=== PATIENT | male | born 1945 | race Caucasian/White ===

== ENCOUNTER → 2023-06-23 | Outpatient (CLI) | payer MEDICARE, OTHER, SELFPAY ==
--- NOTE | 2023-06-23 15:31 | ECHOD_ITS ---
Reason For Study: Afib Procedure This was a 2D Doppler, Color Flow transthoracic echocardiogram. Exam performed in department. Left Ventricle Normal LV size. Left ventricular systolic function is normal. The estimated ejection fraction is 55 %. Stage 1 diastolic dysfunction. No regional wall motion abnormalities noted. Right Ventricle Normal RV size. Normal systolic function. Atria Normal left atrium. Normal right atrium. Mitral Valve Normal mitral valve. Mild (1+) eccentric mitral valve insufficiency. Tricuspid Valve Normal tricuspid valve. Mild (1+) tricuspid valve insufficiency. Pulmonary artery systolic pressure is 28 mmHg. Aortic Valve Trisinus/trileaflet aortic valve. Pulmonic Valve Normal pulmonic valve. Great Vessels Normal aortic root. The pulmonary artery is normal size. Normal inferior vena cava. Pericardium/Pleural No pericardial effusion. Medication 22 gauge I.V. with prn adaptor inserted into right arm. Performed a rapid injection of agitated mix of 9 cc saline and 1cc air to assess for atrial septal defect. MMode/2D Measurements & Calculations LVIDd: 4.1 cm IVSd: 1.2 cm LA dimension: 3.3 cm LVIDs: 2.9 cm LVPWd: 0.93 cm RVDd: 3.6 cm FS: 28.5 % LAV(MOD-bp): 34.9 ml LVAd ap4: 30.0 cm2 SV(MOD-sp4): 48.8 ml LAV(MOD-bp) Indexed: 18.6 ml/m2 LVLd ap4: 8.4 cm LAV(MOD-sp2): 40.4 ml EDV(MOD-sp4): 88.5 ml LAV(MOD-sp4): 28.6 ml EDV(sp4-el): 90.9 ml LVAs ap4: 18.4 cm2 LVLs ap4: 7.1 cm ESV(MOD-sp4): 39.7 ml ESV(sp4-el): 40.1 ml EF(MOD-sp4): 55.1 % EF(sp4-el): 55.9 % SV(sp4-el): 50.8 ml LA A4 area: 13.7 cm2 RA A4 area: 12.0 cm2 TAPSE: 1.5 cm Time Measurements MV dec time: 0.25 sec Doppler Measurements & Calculations MV E max damian: 63.4 cm/sec Lat Peak E' Damian: 11.1 cm/sec Med Peak E' Damian: 7.6 cm/sec MV A max damian: 69.4 cm/sec E/E' lat: 5.7 E/E' med: 8.3 MV E/A: 0.91 MV V2 max: 94.9 cm/sec MV P1/2t max damian: 79.1 cm/sec Ao V2 max: 107.1 cm/sec MV max P.6 mmHg MV P1/2t: 96.2 msec Ao max P.6 mmHg MV V2 mean: 53.2 cm/sec MV mean P.3 mmHg MV dec slope: 240.8 cm/sec2 MV V2 VTI: 30.0 cm MVA(P1/2t): 2.3 cm2 LV V1 max: 91.0 cm/sec PA V2 max: 98.7 cm/sec TR max damian: 249.3 cm/sec LV V1 max P.3 mmHg TR max P.9 mmHg LV V1 mean P.9 mmHg LV V1 mean: 64.7 cm/sec LV V1 VTI: 19.7 cm ECHO/Echo Complete Interpretation Summary Normal LV size. Left ventricular systolic function is normal. The estimated ejection fraction is 55 %. Stage 1 diastolic dysfunction. Mild (1+) tricuspid valve insufficiency. Ordering Physician: Thee Moreno Performed By: Chrsi Romero RCS
== END | disposition home or self-care (01) ==
LOC: CVS 15:30
PROVIDERS: PCP Nurse Practitioner; Referring Provider Internal Medicine Cardiovascular Disease; Visit Provider Internal Medicine Cardiovascular Disease
DX: I48.20 Chronic atrial fibrillation, unspecified (principal)
CPT/HCPCS: 93306

== ENCOUNTER 2023-06-27 07:43 | Observation (INO) | payer MEDICARE, OTHER, SELFPAY ==
--- NOTE | 2023-06-20 16:01 | EKG12_ITS ---
Test Reason : PRE-OP Blood Pressure : / mmHG Vent. Rate : 103 BPM Atrial Rate : 088 BPM P-R Int : 000 ms QRS Dur : 076 ms QT Int : 322 ms P-R-T Axes : 000 008 050 degrees QTc Int : 421 ms Atrial fibrillation Abnormal ECG Confirmed by SHAQUILLE ORTIZ MD ([id number]), greeting card editor AYE TAVERA ([id number]) on 06/22/2023 2:12:39 PM Referred By: RUSTY Confirmed By:SHAQUILLE ORTIZ MD
[2023-06-20 16:27] LABS: Absolute Lymphocyte Count 2.42 X10^3/uL (0.83-4.51); Absolute Neutrophil Count 3.3 X10^3/uL (2.0-7.7); Basophil# 0.07 X10^3/uL; Eosinophil# 0.13 X10^3/uL; Eosinophils% 1.9 % (0-5); Hematocrit 44.3 % (40-54); Hemoglobin 14.1 g/dL (13.0-16.5); Lymphocyte # 2.42 X10^3/ul (0.83-4.51); Lymphocyte % 36.1 % (19-41); Mean Corp Hgb Conc 31.8 g/dL (32-36); Mean Corpuscular Hgb 29.2 pg (27.0-32.0); Mean Corpuscular Volume 91.7 fL (80-94); Mean Platelet Vol. 8.9 fl (6.2-12.0); Monocyte# 0.82 X10^3/uL; Monocyte% 12.2 % (0-10); NRBC Flagged by Analyzer 0 % (0-5); Neutrophil # 3.25 X10^3/uL (2.7-7.7); Neutrophil % 48.5 % (47-70); Platelet Count 259 K/mm3 (150-450); RBC Distribution Width CV 12.5 % (11.6-14.6); RBC Distribution Width SD 41.6 fl (35.1-43.9); Red Blood Count 4.83 M/mm3 (4.6-6.2); White Blood Count 6.7 K/mm3 (4.4-11.0)
[2023-06-20 16:47] LABS: Anion Gap 4 (5-15); BUN 17 mg/dL (7-18); BUN/Creat Ratio 18.8 RATIO (10-20); Chloride 104 mmol/L (98-107); Creatinine, Serum 0.91 mg/dL (0.70-1.30); EST Glomerular Filtration Rate 86 mL/min (>60); Est Glom Filt Rate - Afr Amer 105 mL/min (>60); Glucose 108 mg/dL (74-106); Sodium Level 138 mmol/L (136-145)
[2023-06-20 17:25] LABS: Magnesium 2.5 mg/dL (1.6-2.6)
[2023-06-20 17:44] LABS: HIV - WCH Non-Reactive (Nonreactive); Hepatitis B Surface Antibody Non-Reactive; Hepatitis C Antibody Non-Reactive (Nonreactive)
[2023-06-22 05:07] LABS: Hepatitis A AB, Total Negative (Negative)
[2023-06-27] VITALS (15 sets, daily range): BP systolic 101–151; BP diastolic 57–77; PULSE 62–75; RESP 12–18; TEMP 36.4–36.9; O2SAT 92–99; BMI 23.3; BMI 23.7
[2023-06-27] MEDS: Lactated Ringers 1,000 ML 15 ML IV ×2 (06:19→09:25)
[2023-06-27] MEDS: Acetaminophen 500 MG Tablet 1000 MG PO ×3 (06:19→21:17)
[2023-06-27] MEDS: Magnesium 1 GM over 15 mins IV (06:19)
[2023-06-27 06:40] LABS: Bedside Glucose 90 mg/dL (74-106)
[2023-06-27] MEDS: Cefazolin 2 GM in 0.9% Normal Saline (100mL Bag) 100 ML IV (08:14)
--- NOTE | 2023-06-27 08:45 | RAD_ITS ---
STUDY: X-RAY - LUMBAR SPINE REASON FOR EXAM: Male, 77 years old. Documentation images for localization. TECHNIQUE: A single lateral view(s) of the lumbar spine were obtained. COMPARISON: None FINDINGS: Single lateral view shows surgical instrument projected over the L3-4 interspace. RAD/Spine 1 View Any Level IMPRESSION: Single lateral localization view. Electronically Signed: Sae Beckman MD at 9:17 EDT ,
[2023-06-27] MEDS: THROMBIN (RECOMBINANT) 20,000 UNIT VIAL 20000 UNIT TOPICAL (09:23)
--- NOTE | 2023-06-27 10:23 | PCM.OPRPT ---
Report of Operation Description of Surgical Findings:: Preoperative diagnosis: Far lateral herniation L3-4 on the left Postoperative diagnosis: Same Procedure: Far lateral laminectomy with superior facetectomy L3-4 on the left CPT code 19405 Surgeon: Dr. Perez Nurse Epidemiologist: Dr. Cramer and Lillie SEWELL Anesthesia: General endotracheal by [facility] EBL: Less than 20 cc Drains: None Complications: None Procedure: Patient was taken to the OR where he was placed under general endotracheal anesthesia. A Tai catheter was inserted. Neuro monitoring placed her leads on the patient. We then placed him in the prone position on the Anand frame. Care was taken to protect his bony prominences his genitalia the brachial plexus on both sides the ulnar nerves of both elbows the cervical spine and facial features. The back was prepped and draped standard fashion. I then made a longitudinal incision centered centered over L3-4. Subcutaneous tissues were opened down to the lumbar fascia with cautery. I then elevated the paravertebral muscles off the lamina of L3. An intraoperative x-ray was taken with a marker in place to confirm that we were at the right level. I then exposed the pars and the entire lamina of L3 on the left side. Using an osteotome I started performing the superior facetectomy and had to cut just into the bottom of the pars. From there I used 45 degree Kerrison rongeurs to further remove the superior facet and the lateral lamina. I then encountered the ligamentum flavum I used curettes to release it all around and then began slow removal with Kerrison rongeurs. This was the most tedious part of the surgery. Once it was removed entirely I could see observe the left L3 nerve and its ganglion. The herniated disc was up against it in the axilla where they usually are. Note that it was not a free fragment per se. Some of the annulus went with it but using the pen field that was slowly able to dissected and free fragments were then removed out of the axilla. This completely freed the nerve above and below. Bleeding was controlled with bone wax and bipolar cautery and Gelfoam. At the end of the case we had excellent hemostasis. We placed a amnionic membrane directly on the nerve to prevent any adhesions in the future. I put Gelfoam over the top of that. There was no need for a drain as her blood loss was minimal. Then close lumbar fascia using [id number] suture with #1 Vicryl followed by closure of subcutaneous tissues with 2-0 Vicryl in interrupted fashion and finally the skin was approximated using skin clips. Sterile dressings were then applied the patient was then recovered in the OR moved to his hospital bed and taken to recovery in satisfactory condition. This the end of operative summary on Edy Parks. This is Dr. Perez dictating.
--- NOTE | 2023-06-27 11:27 | DISC_PTH ---
PATIENT: GLENN JONES LOC: MS3 U#:[id number] AGE/SX: 77/M ROOM: CA316 RE06/27/[address]: Dr. West Perez DO : 1945 BED: 1 DIS: 06/28/2023 SPEC #: [id number] RECD: 06/27/23 13:13 STATUS: VERNON QUYEN #: [id number] RADHA: 06/27/23 11:[address]: West Perez DEPT: SURGICAL PATHOLOGY RECD BY: Ashu Pacheco ENTERED: 06/27/23 13:13 SP TYPE: DISC OTHR DR: Raina Bhardwaj, ARABELLA Tissues: Intervertebral disc, NOS Procedures: Surgery Specimen Level III HEADER OPERATION: ERAS, left far lateral laminectomy L3-L4 PRE-OP DIAGNOSIS: Herniated nucleus pulposus L3-L4 left TISSUE SUBMITTED: Lumbar disc MICROSCOPIC DIAGNOSIS Intervertebral disc, L3-L4, discectomy: Fragments of intervertebral disc with degenerative change. AM:juan 06/28/2023 MICROSCOPIC DESCRIPTION Slides are reviewed. GROSS DESCRIPTION Received in fixative is one container labeled with the patient's name and designated lumbar disc. The specimen consists of multiple irregular fragments of manjarrez, indurated tissue that in aggregate measure 1.5 x 0.7 x 0.2 cm. The specimen is totally submitted in one cassette. / SJ:juan 06/27/2023 TC:5 CPT: 65074
--- NOTE | 2023-06-27 14:09 | PCM.PN.HOSP ---
Reason for Visit Reason for Visit: L3-L4 HNP with left-sided radiculopathy at L4 Subjective Subjective Patient is a 77-year-old male who was suffering from low back pain and left-sided L4 radiculopathy on MRI. He is a lifetime non-smoker but had neurological changes therefore was scheduled for a L3-L4 laminectomy and facetectomy which was performed today electively on 06/27/2023. We have been consulted postoperatively for medical management of chronic medical issues. At baseline patient has a history of BPH, GERD, and was recently diagnosed with A-fib with RVR. This was found on a preop EKG. He did follow-up with cardiology and was placed on metoprolol 50 mg daily with plans for anticoagulation after surgical intervention. Preop echocardiogram was unremarkable. Patient was seen postoperatively on the medical floor and denies any issues at this time. He states initial plan is to go home tomorrow as long as he clinically is feeling well. I did review A-fib with he and his . Objective Data Objective Data Vital Signs: Vital Signs Temp Pulse Resp BP Pulse Ox O2 Del Method O2 Flow Rate 97.7 F L 70 17 131/72 H 92 Room Air 4 06/27/23 13:08 06/27/23 13:08 06/27/23 13:08 06/27/23 13:08 06/27/23 13:08 06/27/23 13:08 06/27/23 12:30 Oxygen Flow Rate (L/min) 4 Oxygen Delivery Method Room Air Weight: 72.83 kg Body Mass Index (BMI) 23.7 Intake & Output: Intake and Output for Last 24 Hours 06/25/23 06/26/23 06/27/23 23:59 23:59 23:59 Intake Total 1281 / 1281 Output Total 230 / 230 Balance 1051 / 1051 Lab / Micro Data 06/20/23 15:52 06/20/23 15:52 Labs: Laboratory Results - last 24 hr 06/27/23 06:05: POC Glucose 90 Micro: Microbiology 06/20/23 15:52 Swab (Method) Nasal Screen MRSA/MSSA - Final Radiography Diagnostic Testing: Radiology Impression Spine X-Ray 06/27/23 08:45 IMPRESSION: Single lateral localization view. Electronically Signed: Sae Beckman MD at 9:17 EDT , Physical Exam Const alert, oriented x3, no apparent distress, average body habitus, healthy appearing and well nourished Constitutional Narrative: Pleasant, older, white male, sitting up in bed, at bedside, patient appears comfortable and nontoxic HEENT head/scalp atraumatic, moist oral mucous membranes and oropharynx normal Head and Scalp: normocephalic Resp normal respiratory effort, no retractions, no use of accessory muscles and clear to auscultation bilaterally Auscultation: Negative for rales, rhonchi or wheezes Cardio regular rate, regular rhythm, S1 normal heart sound, S2 normal heart sound, no murmurs, no rub, no gallops, no clicks and no JVD GI normal to inspection, nondistended, normoactive bowel sounds, soft to palpation and non-tender Extremity no clubbing, cyanosis or edema Neuro oriented x3 and moves all extremities Speech: speech normal Psych affect normal Psych Narrative: Contact is good, patient interacts appropriately and is very pleasant Assessment & Plan Assessment/Plan (1) Herniated nucleus pulposus, L3-4 left: (2) Lumbosacral radiculopathy at L4: (3) Left leg pain: PLAN: Plan HNP L3-L4 with left-sided lumbar radiculopathy at L4 -Postop day 0 for lateral laminectomy with superior facetectomy at L3-L4 on the left -Management per primary -Would recommend bowel regimen while on pain medication -PT/OT per primary Newly diagnosed A-fib with RVR -Patient is currently in normal sinus rhythm -Continue metoprolol -Preop echo showed a normal EF at 55% with stage I diastolic dysfunction and mild tricuspid valve insufficiency -Anticoagulation on hold and feel patient can follow-up with cardiology after surgery and then plan is to initiate then per documentation BPH -Continue Flomax -Patient currently with Tai catheter History of GERD -Patient is currently not on any medication DVT prophylaxis -SCDs -Chemoprophylaxis per primary Charges/Coding Visit Charges Inpatient E&M: 51397 Subs Hosp L2
[2023-06-27] MEDS: Lactated Ringers 1,000 ML 100 ML IV (15:23)
[2023-06-27] MEDS: Cefazolin 1 GM/50 ML BAG IV ×2 (15:30→23:52)
[2023-06-27] MEDS: Ensure Surgery 237 ML LIQUID PO (15:33)
[2023-06-27] MEDS: Tamsulosin HCl 0.4 MG Capsule PO (17:23)
[2023-06-27] MEDS: oxyCODONE 5 MG Tablet PO (19:49)
[2023-06-28 01:08] VITALS: BP 139/74; PULSE 82; RESP 16; TEMP 36.6; O2SAT 96
[2023-06-28 05:08] VITALS: BP 125/67; PULSE 72; RESP 16; TEMP 36.6; O2SAT 95
[2023-06-28] MEDS: Acetaminophen 500 MG Tablet 1000 MG PO ×2 (05:11→15:45)
[2023-06-28] MEDS: oxyCODONE 5 MG Tablet PO (05:11)
[2023-06-28 07:31] VITALS: O2SAT 95
[2023-06-28 08:00] VITALS: BP 123/60; PULSE 77; RESP 18; TEMP 36.9; O2SAT 97
[2023-06-28 09:28] VITALS: PULSE 77
[2023-06-28] MEDS: Flu Vacc QS2023-24(65YR UP)/PF 240 MCG/0.7 ML Syringe IM (09:28)
[2023-06-28] MEDS: Metoprolol(XL)Succ 50 MG Tablet PO (09:28)
--- NOTE | 2023-06-28 09:38 | PCM.PN.HOSP ---
Reason for Visit Reason for Visit: Diagnoses Other intervertebral disc displacement, lumbar region (06/27/23) Radiculopathy, lumbosacral region (06/27/23) Pain in left leg (06/27/23) Encounter for other preprocedural examination (06/27/23) Subjective Subjective Patient doing well, some pressure in back intermittently but getting up and ambulating well, no acute complaints Objective Data Objective Data Vital Signs: Vital Signs Temp Pulse Resp BP Pulse Ox O2 Del Method O2 Flow Rate 97.8 F 77 16 125/67 H 95 Room Air 4 06/28/23 05:08 06/28/23 09:28 06/28/23 05:08 06/28/23 05:08 06/28/23 07:31 06/28/23 07:31 06/27/23 12:30 Oxygen Flow Rate (L/min) 4 Oxygen Delivery Method Room Air Weight: 72.83 kg Body Mass Index (BMI) 23.7 Intake & Output: Intake and Output for Last 24 Hours 06/26/23 06/27/23 06/28/23 23:59 23:59 23:59 Intake Total 1571 / 1571 1050.00 / 1050.00 Output Total 480 / 783 603 / 603 Balance 1091 / 788 447.00 / 447.00 Lab / Micro Data 06/20/23 15:52 06/20/23 15:52 Micro: Microbiology 06/20/23 15:52 Swab (Method) Nasal Screen MRSA/MSSA - Final Physical Exam Narrative General: Alert, oriented, no apparent distress HEENT: Atraumatic, normocephalic Eyes: Anicteric, normal conjunctiva, extraocular movements grossly intact Neck: Supple Respiratory: Clear to auscultation bilaterally, normal respiratory effort Cardiovascular: Regular rate and rhythm GI: Soft, nontender, nondistended Extremities: No edema Musculoskeletal: Moving all extremities Neuro: No overt focal neurological deficits Skin: No rashes appreciated Psych: Cooperative Assessment & Plan Assessment/Plan (1) Herniated nucleus pulposus, L3-4 left: (2) Lumbosacral radiculopathy at L4: (3) Left leg pain: PLAN: Plan HNP L3-L4 with left-sided lumbar radiculopathy at L4 -Postop day 0 for lateral laminectomy with superior facetectomy at L3-L4 on the left -Management per primary -Would recommend bowel regimen while on pain medication -PT/OT per primary -06/28: Patient up and ambulating without significant difficulty, dispo per primary Newly diagnosed A-fib with RVR -Patient is currently in normal sinus rhythm -Continue metoprolol -Preop echo showed a normal EF at 55% with stage I diastolic dysfunction and mild tricuspid valve insufficiency -Anticoagulation on hold and feel patient can follow-up with cardiology after surgery and then plan is to initiate then per documentation -06/28: Heart rate presently controlled, continue present management BPH -Continue Flomax -Patient currently with Tai catheter History of GERD -Patient is currently not on any medication DVT prophylaxis -SCDs -Chemoprophylaxis per primary DISPO: Will defer final discharge plan to primary however okay to DC from medical perspective Charges/Coding Visit Charges Inpatient E&M: 20523 Subs Hosp L1
--- NOTE | 2023-06-28 09:48 | CASEMGMT ---
SAMUEL MARTINEZ Assessment: Face to Face with pt for initial transition planning/care coordination assessment. RN MICHELLE introduced self and role at [facility], pt voices understanding and consents to assessment. Pt is A&O x4 and answers all questions appropriately at this time. Pt sitting up in bed in no distress. Care providers, pharmacy, and demographics verified/updated. Admitting Dx: far lateral laminectomy L3-4 left PCP:Raina Bhardwaj BUILDING MANAGER Specialists:Hunter Perez; yamile Medina Preferred Pharmacy: [facility] [address] Insurance: [facility], [employer] Prescription Benefit: yes LNOK: Eunice Parks, Living Arrangements: Pt lives with in a single story home with 2 steps to enter with a rail. Pt reports he is I in ADL's and denies concerns at home. 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 Transportation: Pt drives self and denies concerns with transportation. Pt will transport pt until he can drive again. DME:None HHC/SNF: Pt denies hx of Pt states no concerns with going home at time of dc. Pt states he has been ambulating in the halls without a device. Pt states no further concerns/needs. CM to follow. Advised pt to ask CM if any further question/concerns/needs arise, voices understanding. Pt Goal: Home Plan: Home
--- NOTE | 2023-06-28 10:14 | CASEMGMT ---
Met with patient to complete SHEETS form. SHEETS form explained to patient who voiced understanding and signed form. Original form placed in pt?s chart and copy provided to?patient. Malou Lutz, Discharge Planning Asst.
[2023-06-28 14:00] VITALS: BP 120/62; PULSE 68; RESP 16; TEMP 36.8; O2SAT 99
--- NOTE | 2023-06-28 15:22 | PCM.DC ---
Discharge Instructions Activity May shower in (days): 3 May resume sexual activity in: 4-6 weeks Lifting Restrictions: 15# Dressing / Incision Remove Dressing in: 4 days Follow Up Care Test Results: Test results from this visit will be discussed in further detail at your follow-up appointment, if applicable. Discharge Plan Admission Admit Date/Time: 06/27/23 07:43 Attending Provider: West Perez Primary Care Provider: Raina Bhardwaj NP Consulting Providers: Bonita Henderson Discharge Orders/Prescriptions Prescriptions: No Action metoprolol succinate [Toprol XL] 50 mg tablet extended release 24 hr 50 mg PO DAILY Qty: 60 3RF tamsulosin 0.4 mg capsule 0.4 mg PO DAILY acetaminophen 325 mg capsule 650 mg PO Q4H PRN (Reason: pain) oxycodone-acetaminophen 5-325 mg tablet 1 tab PO Q6H PRN (Reason: pain) 10 Days Qty: 40 0RF Referrals / Follow Up: Raina Bhardwaj NP, HALL TENDER-C [Primary Care Provider] - Disposition Disposition (needs filled in before D/C Order can be placed): Home, Self Care
--- NOTE | 2023-06-28 15:23 | DS.PCM_ITS ---
Providers Date of Admission: 06/27/23 Primary Care Physician: Raina Bhardwaj NP-C Attending Physician: Mr. Parks was yesterday . He underwent for a lateral laminectomy at L3-4 on the left side. Today he reports that he is quadriceps pain on the left is comp letely resolved. His back does not hurt very much at all. His dressing is dry. Neurologically he is intact other than the 3 surgical quad wasting that he had before. I gave him directions regarding his activities over the next several days. His was present with him during my visit. I will give him oxycodone 5/325 for pain. He already has an appointment to see me on 10 July. Know ho w to get ahold of me in the event that they need to. Otherwise I will see him on the . Consultations 06/27/23 13:07 Consult: Hospitalist Routine Consulting Provider: Destiny Mckenzie Reason for Consult: Medical Management EMERGENT Consult: No MD Notified: Yes Date Notified: 06/27/23 Time Notified: 13:30 Method of Notification: Text Reason For Visit: Far lateral laminectomy L3-4 left Diagnosis Discharge Diagnosis (1) Herniated nucleus pulposus, L3-4 left: Status: Acute Code(s): M51.26 - Other intervertebral disc displacement, lumbar region (2) Lumbosacral radiculopathy at L4: Status: Acute Code(s): M54.17 - Radiculopathy, lumbosacral region (3) Left leg pain: Status: Acute Code(s): M79.605 - Pain in left leg Medications at Discharge Home Medications tamsulosin 0.4 mg capsule 0.4 mg PO DAILY 03/10/23 acetaminophen 325 mg capsule 650 mg PO Q4H PRN pain 06/14/23 metoprolol succinate 50 mg tablet,extended release 24 hr (Toprol XL) 50 mg PO DAILY #60 tabs 06/23/23 oxycodone-acetaminophen 5 mg-325 mg tablet 1 tab PO Q6H PRN pain 10 days #40 tabs 06/28/23 Weight / BMI Weight Weight: 160 lb 9 oz Body Mass Index (BMI) 23.7 ABG / Lab / Microbiology Data 06/20/23 15:52 06/20/23 15:52 Microbiology: Microbiology 06/20/23 15:52 Swab (Method) Nasal Screen MRSA/MSSA - Final D/C Instructions May shower in (days): 3 May resume sexual activity in: 4-6 weeks Meaningful Use Info Meaningful Use Diagnoses (Choose all that apply): None applicable Discharge Plan Admission Admit Date/Time: 06/27/23 07:43 Attending Provider: West Perez Primary Care Provider: Raina Bhardwaj NP Consulting Providers: Bonita Henderson Discharge Orders/Prescriptions Prescriptions: No Action metoprolol succinate [Toprol XL] 50 mg tablet extended release 24 hr 50 mg PO DAILY Qty: 60 3RF tamsulosin 0.4 mg capsule 0.4 mg PO DAILY acetaminophen 325 mg capsule 650 mg PO Q4H PRN (Reason: pain) oxycodone-acetaminophen 5-325 mg tablet 1 tab PO Q6H PRN (Reason: pain) 10 Days Qty: 40 0RF Referrals / Follow Up: Raina Bhardwaj NP, PROCUREMENT PROFESSIONAL LOGISTICS-C [Primary Care Provider] - Disposition Disposition (needs filled in before D/C Order can be placed): Home, Self Care
== END 2023-06-28 15:55 | disposition home or self-care (01) ==
LOC: SDC 10:51 → MS3 10:51
PROVIDERS: Anesthesiology; Admitting Provider Orthopaedic Surgery; PCP Nurse Practitioner; Referring Provider Orthopaedic Surgery; Visit Provider Orthopaedic Surgery
PROC: (CPT 63030; principal; 2023-06-27 07:00)
DX: M51.16 Intervertebral disc disorders with radiculopathy, lumbar region (principal); I48.91 Unspecified atrial fibrillation; K21.9 Gastro-esophageal reflux disease without esophagitis; Z79.899 Other long term (current) drug therapy; N40.0 Benign prostatic hyperplasia without lower urinary tract symptoms; Z23 Encounter for immunization
CPT/HCPCS: 63030; 00630; 36415; 72020; 80048; 82962; 83735; 85025; 86703; 86706; 86708; 86803; 87081; 88304; 93005; 94668; 96361; 96365; 96366; 97162; 97530; 99221; G0008; J7120; 90662; G0378; J2405; J3475